=== PATIENT | female | born 1990 | race Caucasian/White ===

== ENCOUNTER 2023-10-21 18:06 | Emergency (ER) | payer OTHER ==
[2023-10-21 18:18] VITALS: BP 140/85; BMI 24.5
[2023-10-21] MEDS ORDERED: ACETAMINOPHEN 500 MG TABLET (FP) ONE (19:31)
[2023-10-21] MEDS: ACETAMINOPHEN 500 MG TABLET (FP) PO ONE (19:33)
[2023-10-21 20:21] VITALS: PULSE 77; RESP 16; TEMP 98.3
== END 2023-10-21 20:24 | disposition home or self-care (01) ==
LOC: JER 18:06
DX: R68.84 Jaw pain (principal); M25.562 Pain in left knee; R00.2 Palpitations; V49.09XA Driver injured in collision with other motor vehicles in nontraffic accident, initial encounter; Y92.410 Unspecified street and highway as the place of occurrence of the external cause
CPT/HCPCS: 93005; 93010; 99283-25